=== PATIENT | male | born 1945 | race Hispanic/Latino ===

== ENCOUNTER 2024-08-02 08:58 | Emergency (ER) | payer MEDICARE | END 2024-08-02 11:38 | disposition home or self-care (01) | LOC: NAV ERS 08:58 | DX: R09.A2 Foreign body sensation, throat (principal); I10 Essential (primary) hypertension; Z86.73 Personal history of transient ischemic attack (TIA), and cerebral infarction without residual deficits | CPT/HCPCS: 70360; 99284 ==